=== PATIENT | male | born 1960 | race African-American/Black ===

== ENCOUNTER 2022-11-20 08:50 | Emergency (ER) | payer OTHER ==
[~2022-11-20] VITALS: Ht 182.9 cm; Wt 90.0 kg
[2022-11-20 08:56] VITALS: BP 123/70; PULSE 99; RESP 16; TEMP 98.8; O2SAT 99
== END 2022-11-20 11:20 | disposition left against medical advice (07) ==
LOC: ER 09:17
DX: R51.9 Headache, unspecified (principal); Z53.21 Procedure and treatment not carried out due to patient leaving prior to being seen by health care provider
CPT/HCPCS: 99281